=== PATIENT | female | born 2000 | race Caucasian/White ===

== ENCOUNTER 2024-08-28 18:01 | Emergency (ER) | payer MEDICAID, SELFPAY ==
[2024-08-28 18:04] VITALS: BP 108/63; PULSE 93; RESP 18; TEMP 36.7; O2SAT 99
[2024-08-28 18:07] VITALS: PULSE 93; O2SAT 99
[2024-08-28 18:32] VITALS: BP 100/65; PULSE 92; RESP 18; TEMP 37.1; O2SAT 96; BMI 32.8
--- NOTE | 2024-08-28 18:38 | PD.EDRME ---
Rapid Medical Screening Exam RME Arrival date/time: 08/28/24 18:01 Chief Complaint: Weakness Time Seen by Provider: 08/28/24 18:33 Vital signs: Vital Signs Temperature 98.1 F 08/28/24 18:04 Pulse Rate 93 08/28/24 18:04 Respiratory Rate 18 08/28/24 18:04 Blood Pressure 108/63 08/28/24 18:04 Pulse Oximetry (%) 99 08/28/24 18:04 Oxygen Delivery Method Room Air 08/28/24 18:04 Vital signs reviewed by provider: Yes RME Narrative: 24-year-old female presents for evaluation of weakness x 1 hour. She reports that she had a verbal altercation with PD just prior to arrival and has felt increasingly stressed since that time. She endorses suicidal ideation without a plan. She denies access to firearms at home. Endorses access to knives at home. Denies homicidal ideation. She has not taken her Keppra today.
[2024-08-28] MEDS: levETIRAcetam 250 MG TABLET 500 MG PO (19:00)
--- NOTE | 2024-08-28 23:28 | PC.NURSE ---
PT CALLED FROM [facility] NO ANSWER
--- NOTE | 2024-08-28 23:54 | PC.NURSE ---
PT CALLED BACK FROM [facility]OB[facility] NO ANSWER
== END 2024-08-29 00:08 | disposition left against medical advice (07) ==
PROVIDERS: Emergency Provider Emergency Medicine; PCP Family Medicine
DX: R53.1 Weakness (principal); Z53.29 Procedure and treatment not carried out because of patient's decision for other reasons
CPT/HCPCS: 81001; 81025; 99281; A9270

== ENCOUNTER 2024-09-09 19:47 | Emergency (ER) | payer MEDICAID, SELFPAY ==
[2024-09-09 19:54] VITALS: BP 130/89; PULSE 97; RESP 18; TEMP 36.8; O2SAT 96; BMI 28.8
[2024-09-09 20:05] VITALS: PULSE 98; RESP 18; O2SAT 99
--- NOTE | 2024-09-09 20:14 | EDNOTE_ITS ---
ED Seizures RME/HPI General Chief Complaint: Seizure Stated Complaint: SEIZURE Time Seen by Provider: 09/09/24 20:13 Source: patient and EMS Arrival date/time: 09/09/24 19:47 Mode of arrival: EMS Limitations: no limitations RME / HPI RME / HPI Narrative: DR LARRY MAIN ED EVALUATION: 24-year-old female patient with history of seizure disorder brought in by ambulance for reported seizure lasting of unknown duration. Patient states she did not fall or injure herself. She states she has been compliant with her medications. Used to see neurologist who is no longer practicing. Her PCP is managing her medications now. Related Data Home Medications ?Medication ?Instructions ?Recorded ?Confirmed fluoxetine 20 mg capsule 20 mg PO QDAY 06/25/24 06/25/24 levetiracetam 500 mg tablet 500 mg PO BID 06/25/24 06/25/24 methocarbamol 500 mg tablet 500 mg PO Q4H 06/25/24 06/25/24 prazosin 1 mg capsule 1 mg PO HS 06/25/24 06/25/24 prednisone 20 mg tablet mg 06/25/24 prednisone 20 mg tablet mg 06/25/24 prednisone 20 mg tablet mg 06/25/24 prednisone 20 mg tablet mg 06/25/24 06/25/24 Allergies Allergy/AdvReac Type Severity Reaction Status Date / Time amoxicillin Allergy Difficulty Verified 09/15/24 10:44 Breathing latex Allergy Hives Verified 09/15/24 10:44 mayonnaise Allergy Rash Verified 09/15/24 10:44 Pertussis Vaccines Allergy Difficulty Verified 09/15/24 10:44 Breathing pineapple Allergy Rash Verified 09/15/24 10:44 tomato Allergy Verified 09/15/24 10:44 Review of Systems Review of Systems Systems Reviewed: All systems reviewed, normal except as documented Narrative Review of Systems: CONST: Negative for fever, body aches and chills. HENT: Negative for neck pain/stiffness, headache, congestion, sore throat, swelling. EYES: Negative for discharge/pain or vision changes. RESP: Negative for cough/hemoptysis and shortness of breath. CV: Negative chest pain, difficulty breathing, palpitations. ABD: Negative pain, nausea, vomiting. : Negative increase frequency, dysuria, blood in urine or stool. MUSC: Negative for muscle aches, edema. SKIN: Negative rash, lesions/sores. NEURO: Negative headache, dizziness, weakness. Past Medical History Past Medical History NEUROLOGIC: Positive Seizures and Cerebral Palsy CARDIAC: Negative Congestive Heart Failure RESPIRATORY: Negative Chronic Obstructive Pulmonary Disease (COPD) GENITOURINARY: Negative Renal Disease ENDOCRINE: Negative Diabetes Mellitus Type 1 or Diabetes Mellitus Type 2 PSYCHO/SOCIAL: Positive Schizophrenia, Bipolar Disorder and Depression Social History SMOKING STATUS: Never smoker SUBSTANCE USE: does not use ED Exam Narrative Physical exam: GENERAL APPEARANCE: alert and oriented x 4, well-developed, well-nourished, no acute distress HEENT: Normocephalic, atraumatic; pupils equal, round, reactive to light; EOMI; mucous membranes pink, moist; oropharynx clear NECK: Supple LUNGS: CTABL; no wheezes, no rales, no rhonchi HEART: Regular rate, regular rhythm; normal S1, S2; no murmurs ABDOMEN: non distended; normal BS; soft, no tenderness, no guarding, no rebound; no masses, no organomegaly, no hernia BACK: no CVA tenderness EXTREMITIES: atraumatic; no edema NEUROLOGIC: awake; alert and oriented x4; cranial nerves II-XII grossly intact; no focal sensory or motor deficits PSYCHIATRIC: appropriate mood and affect SKIN: warm, dry, normal color; no rashes General Limitations: Present no limitations Course Quality Measures none Orders Category Date Time Status levETIRAcetam [Keppra] Med 09/09/24 21:06 Discontinued 1,000 mg PO X1 ONE Vital Signs Vital signs: Vital Signs Temperature 98.3 F 09/09/24 19:54 Pulse Rate 97 09/09/24 19:54 Respiratory Rate 18 09/09/24 19:54 Blood Pressure 130/89 H 09/09/24 19:54 Pulse Oximetry (%) 96 09/09/24 19:54 Oxygen Delivery Method Nasal Cannula 09/09/24 19:54 Oxygen Flow Rate 1 09/09/24 19:54 Seizure MDM Narrative MDM Narrative:: Scribe Attestation: Celi Vásquez, astrid scribing for and in the presence of Dr. Larry. Provider Notation: Although this document has been carefully reviewed, there may still be some phonetic and other typographical errors. These errors are purely grammatical due to imperfections in the software program and should not be construed in any way to compromise the substance of the patient's medical care during this visit. Patient data External records reviewed:: [facility] previous records Clinical information provided by:: patient Social determinants that could affect healthcare access:: mental health Patient has the following chronic illnesses:: Seizure disorder, Cerebral Palsy; Schizophrenia, Bipolar Disorder, Depression How is presenting disease/condition affected by chronic disease/condition?: c aused by Evaluation data The following diagnostics were reviewed and interpreted by me:: other (specify) Lab and/or radiology exams considered but not ordered:: Considered lab work and CT brain Interpretation Summary: n/a Medications / Prescriptions Medications or Prescriptions considered but not ordered:: n/a Medication administrations:: Medication Administration History Discontinued Medications Levetiracetam (Levetiracetam 250 Mg Tablet) 1,000 mg PO X1 ONE Stop: 09/09/24 21:07 Last Admin: 09/09/24 21:22 Dose: 1,000 mg Documented By: DB as above Consultations Consultation(s) initiated? (list below): No Diagnosis Seizure Differential Diagnosis: intractable seizure disorder, focal seizure, generalized seizure, epileptic seizure and status epilepticus Most likely diagnosis given after review of the tests above:: Recurrent seizures Admission Indicated Admission indicated?: not indicated Admission Request Was there a request for admission?: No Disposition Plan Disposition Plan: Discharge Discharge Attestation Discharge Attestation: The patient and all family members were given an opportunity to ask questions and understood the discharge instructions. Discharge instructions specifically effects, indications for sooner follow up or return to the emergency department, and the expected course of current diagnosis. Patient condition: Stable Discharge Plan Plan Patient Disposition: HOME (Self Care) Prescriptions/Referrals Prescriptions/Med Rec: No Action prednisone 20 mg tablet Patient Comments: TAKE 1 TABLET BY MOUTH ONCE DAILY FOR 4 DAY prednisone 20 mg tablet Patient Comments: TAKE 1 TABLET BY MOUTH ONCE DAILY FOR 4 DAY prednisone 20 mg tablet Patient Comments: TAKE 1 TABLET BY MOUTH ONCE DAILY FOR 4 DAY prednisone 20 mg tablet Patient Comments: TAKE 1 TABLET BY MOUTH ONCE DAILY FOR 4 DAY methocarbamol 500 mg tablet 500 mg PO Q4H Patient Comments: TAKE 1 TABLET BY MOUTH EVERY 4 HOURS FOR 30 DAYS levetiracetam 500 mg tablet 500 mg PO BID Patient Comments: TAKE 1 TABLET BY MOUTH EVERY 12 HOURS FOR 90 DAYS prazosin 1 mg capsule 1 mg PO HS Patient Comments: TAKE 1 CAPSULE BY MOUTH AT BEDTIME NIGHT FOR 60 DAYS fluoxetine 20 mg capsule 20 mg PO QDAY Patient Comments: TAKE 1 CAPSULE BY MOUTH EVERY DAY Referrals: Erich Ramirez MD [Primary Care Provider] - In 1 week Problem List Clinical Impression: Recurrent seizures Patient/Caregiver Discharge Instructions Education Materials: ED Seizure, Recurrent (Adult) Print Language: Cameroonian Stand Alone Forms: Maral Award Info., Patient Portal Info Letter
[2024-09-09] MEDS: levETIRAcetam 250 MG TABLET 1000 MG PO (21:22)
[2024-09-09 22:40] VITALS: BP 108/61; PULSE 71; RESP 16; TEMP 36.7; O2SAT 99
== END 2024-09-09 22:38 | disposition home or self-care (01) ==
PROVIDERS: Emergency Provider Emergency Medicine; PCP Family Medicine
DX: R56.9 Unspecified convulsions (principal)
CPT/HCPCS: 99283; A9270

== ENCOUNTER 2024-09-15 10:13 | Emergency (ER) | payer MEDICAID, SELFPAY ==
[2024-09-15 10:38] VITALS: PULSE 96; RESP 18; O2SAT 98; BMI 28.8
--- NOTE | 2024-09-15 10:49 | PC.NURSE ---
MADI FROM HOME. PER EMS SHE SMOKED SOME MARIJUANA, BECAME DEPRESSED AND WAS HAVING THOUGHT OF WANTING TO , PT THEN CALLED EMS AND CAME IN ON A VOLUNTARY HOLD. SITTER IN PLACE.
[2024-09-15 10:55] VITALS: BP 101/66; PULSE 68; RESP 18; TEMP 37.2; O2SAT 99; BMI 28.8
--- NOTE | 2024-09-15 11:09 | PD.EDDEPRS ---
ED Psych RME/HPI General Chief Complaint: Depression Stated Complaint: MENTAL EVAL Time Seen by Provider: 09/15/24 10:36 Arrival date/time: 09/15/24 10:13 RME / HPI RME / HPI Narrative: 24-year-old female patient with significant history of depression mental health problem, came in for evaluation regarding depression. Patient told me that she ate and edible earlier today and after that she had a bad trip, resulting to oral severe feeling sadness. Patient denies any auditory or visual hallucination.. Patient denies any homicidal suicidal ideation. Denies any other complaints no medications taken prior to arrival. Related Data Home Medications ?Medication ?Instructions ?Recorded ?Confirmed fluoxetine 20 mg capsule 20 mg PO QDAY 06/25/24 06/25/24 levetiracetam 500 mg tablet 500 mg PO BID 06/25/24 06/25/24 methocarbamol 500 mg tablet 500 mg PO Q4H 06/25/24 06/25/24 prazosin 1 mg capsule 1 mg PO HS 06/25/24 06/25/24 prednisone 20 mg tablet mg 06/25/24 prednisone 20 mg tablet mg 06/25/24 prednisone 20 mg tablet mg 06/25/24 prednisone 20 mg tablet mg 06/25/24 06/25/24 Allergies Allergy/AdvReac Type Severity Reaction Status Date / Time amoxicillin Allergy Difficulty Verified 09/15/24 10:44 Breathing latex Allergy Hives Verified 09/15/24 10:44 mayonnaise Allergy Rash Verified 09/15/24 10:44 Pertussis Vaccines Allergy Difficulty Verified 09/15/24 10:44 Breathing pineapple Allergy Rash Verified 09/15/24 10:44 tomato Allergy Verified 09/15/24 10:44 Review of Systems Review of Systems Narrative Review of Systems: Review of system reviewed and within normal limits except mentioned in HPI ED Exam Narrative Physical exam: VITAL SIGNS: Reviewed. GENERAL APPEARANCE: Alert and interactive, follows commands, no acute distress, HEAD AND FACE: Non-traumatic. ENT: PERRL, pink conjunctivitis, eyelid no trauma, Mucous membrane moist. NECK: Supple, nontender, no nuchal rigidity. CHEST: No tenderness, no crepitus, no paradoxical movement, no retractions. LUNGS: Clear, well ventilated, symmetric, no rales, no wheezing, no ronchi, no stridor, good breath sounds bilaterally. HEART: Regular rate, regular rhythm, no murmur, no gallops. ABDOMEN: Soft, positive bowel sounds, nondistended, no guarding, nontender, no rebound, no masses, RECTAL: Deferred. GENITAL: Deferred. NEUROLOGICAL: Gross motor function intact sensory function intact, Appropriate for age. MUSCULOSKELETAL: low back nontender, full range of motion. EXTREMITIES: Nontender, full range of motion. SKIN: Color pink, dry, no rash, no lacerations, no abrasions, no contusions. LYMPHATICS: Deferred. Course Quality Measures none Vital Signs Vital signs: Vital Signs Temperature 98.9 F 09/15/24 10:55 Pulse Rate 68 09/15/24 10:55 Respiratory Rate 18 09/15/24 10:55 Blood Pressure 101/66 09/15/24 10:55 Pulse Oximetry (%) 99 09/15/24 10:55 Oxygen Delivery Method Room Air 09/15/24 10:55 Psych MDM Narrative MDM Narrative:: Multiple reevaluation patient told me that she feels back to baseline, denies any homicidal or suicidal ideation. Patient is medically cleared for crisis intervention Crisis personnel saw the patient and has recommended that patient can be discharge home safely. I interviewed the patient, pt is calm and cooperative, denies suicidal ideation and HI at this time. cooler room worker has assured me that she will be setting up/helping the patient with mental health clinic appointments and outpatient community resources. Patient data External records reviewed:: None Clinical information provided by:: none Social determinants that could affect healthcare access:: none Patient has the following chronic illnesses:: Depression, mental health problem How is presenting disease/condition affected by chronic disease/condition?: exacerbated by Evaluation data The following diagnostics were reviewed and interpreted by me:: other (specify) (None) Lab and/or radiology exams considered but not ordered:: None Interpretation Summary: None Medications / Prescriptions Medications or Prescriptions considered but not ordered:: None Medication administrations:: None Consultations Consultation(s) initiated? (list below): No Diagnosis Psych Differential Diagnosis: acute psychosis, chronic schizophrenia and depression Most likely diagnosis given after review of the tests above:: Depression Admission Indicated Admission indicated?: not indicated Admission Request Was there a request for admission?: No Disposition Plan Disposition Plan: Discharge Discharge Attestation Discharge Attestation: The patient was given an opportunity to ask questions and understood the discharge instructions. Discharge instructions specifically effects, indications for sooner follow up or return to the emergency department, and the expected course of current diagnosis. Patient condition: Stable Discharge Plan Plan Patient Disposition: HOME (Self Care) Disposition Comment: stable Prescriptions/Referrals Prescriptions/Med Rec: No Action prednisone 20 mg tablet Patient Comments: TAKE 1 TABLET BY MOUTH ONCE DAILY FOR 4 DAY prednisone 20 mg tablet Patient Comments: TAKE 1 TABLET BY MOUTH ONCE DAILY FOR 4 DAY prednisone 20 mg tablet Patient Comments: TAKE 1 TABLET BY MOUTH ONCE DAILY FOR 4 DAY prednisone 20 mg tablet Patient Comments: TAKE 1 TABLET BY MOUTH ONCE DAILY FOR 4 DAY methocarbamol 500 mg tablet 500 mg PO Q4H Patient Comments: TAKE 1 TABLET BY MOUTH EVERY 4 HOURS FOR 30 DAYS levetiracetam 500 mg tablet 500 mg PO BID Patient Comments: TAKE 1 TABLET BY MOUTH EVERY 12 HOURS FOR 90 DAYS prazosin 1 mg capsule 1 mg PO HS Patient Comments: TAKE 1 CAPSULE BY MOUTH AT BEDTIME NIGHT FOR 60 DAYS fluoxetine 20 mg capsule 20 mg PO QDAY Patient Comments: TAKE 1 CAPSULE BY MOUTH EVERY DAY Referrals: Erich Ramirez MD [Primary Care Provider] - In 1 week Problem List Clinical Impression: Depression Patient/Caregiver Discharge Instructions Education Materials: Depression: Tips to Help Yourself Additional Instructions: Thank you for the opportunity for serving you today. You are stable for discharged . You are advised to: Follow-up with your PCP in 1 to 2 days Return to ED for worsening of symptoms Increase oral fluids Take medication as prescribed by your mental health MD Please stop eating marijuana Gummies Print Language: Cape Verdean Stand Alone Forms: Maral Award Info., Patient Portal Info Letter ELI/FARIDEH Supervising Physician DESMOND Supervising Physician: MD Patricio
[2024-09-15 12:37] VITALS: BP 105/65; PULSE 80; RESP 16; TEMP 36.7; O2SAT 100
--- NOTE | 2024-09-15 13:07 | PC.CC ---
Patient is a 24 year-old female who identifies as male. This patient was BIBA for mental health evaluation. Alexandra met with patient [id number] to complete assessment. ASW introduced self, role, and reason for assessment. ASW disclosed limits of confidentiality as well. Patient appeared alert and oriented to self, place, and situation. Patient?s mood appeared euthymic. Patient stated, ?I am in a good mood.? Patient?s thought process was linear and organized. No signs of delusions, paranoid or V/h. The patient stated, ?I took an edible and it gave me a bad trip made me feel depressed.? Per patient, it was a bad choice to take the edible. The patient denied suicidal or homicidal ideations. The patient denied visual and auditory hallucinations. Patient reports she has had multiple suicide attempts in the past but not suicidal today. The patient?s last psychiatric hospitalization was last month. The patient reports he has a diagnosis of Borderline Personality Disorder, Depression, Schizophrenia, and Anxiety. The patient reported he sees a Psychologist, Nixon Briones with [facility] and has a follow-up appointment in October 2024. The patient recently became connected with a psychiatrist at [facility] and had his first appointment yesterday and has a follow-up after [place]. The patient is a client of [facility] his worker is Archana Sewell. Patient provided consent to make contact with [facility] worker. The patient reports his support system is his roommate Dayanara and grandmother, Pamella Gamboa . Patient reports he does not want to go to a [facility] hospital and wants to engage in safety plan. Collateral: Lyn HINSON made contact with Archana Sewell, [facility] Worker. Per Archana, patient is receiving Independent [facility] Services which provides support to patient with daily living needs such as staff takes patient to any medical appointments, picking up his medications, grocery shopping, food preparation, etc. The patient?s Webb Screening was Moderate Risk. Upon clinical consultation with [facility] Loren Dinero patient does not meet criteria for 5150-Hold. Patient engaged in safety planning patient called and made a sooner appointment with his Psychologist, Nixon Briones for October 05, 2024 3:00pm and already has a follow-up appointment with Arnulfo Negron. Patient will return home with his roommate Dayanara. Patient was provided with community resources: Warm Line and Crisis Line and was informed to return to the ED should depressive symptoms return.
[2024-09-15 13:45] VITALS: BP 110/65; PULSE 80; RESP 18; TEMP 36.6; O2SAT 100
--- NOTE | 2024-09-15 13:45 | PC.NURSE ---
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
== END 2024-09-15 14:02 | disposition home or self-care (01) ==
PROVIDERS: Emergency Provider Emergency Medicine; PCP Family Medicine
DX: Z00.8 Encounter for other general examination (principal); F32.A Depression, unspecified
CPT/HCPCS: 90839; 96127; 99284

== ENCOUNTER 2024-09-20 23:29 | Emergency (ER) | payer MEDICAID, SELFPAY ==
[2024-09-21 00:24] VITALS: BP 106/70; PULSE 86; RESP 19; TEMP 36.4; O2SAT 98
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
[2024-09-21] MEDS: FAMOTIDINE 20 MG TABLET 40 MG PO (00:55)
[2024-09-21] MEDS: MG HYD/AL HYD/SIME (Maalox Reg) SUSP 30 ML UDC PO (00:55)
[2024-09-21 01:34] LABS: Basophils % (Auto) 1 % (0-2.5); Eosinophils # (Auto) 0.2 Thou/mm3 (0.0-0.5); Eosinophils % (Auto) 3 % (0-10); Hemoglobin 12.9 g/dL (12.0-16.0); Immature Granulocytes % (Auto) 0 % (0-0); Immature Granulocytes Auto 0.01 Thou/mm3 (0.00-0.00); Lymphocytes # (Auto) 2.2 Thou/mm3 (1.0-4.8); Lymphocytes % (Auto) 30 % (10-50); Mean Corpuscular HGB Conc 34.9 g/dl (31.0-37.0); Mean Corpuscular Hemoglobin 30.5 pg (25.0-35.0); Mean Corpuscular Volume 88 fL (80-100); Monocytes # (Auto) 0.3 Thou/mm3 (0.0-0.8); Monocytes % (Auto) 5 % (0-12); Neutrophils # (Auto) 4.3 Thou/mm3 (1.8-7.7); Neutrophils % (Auto) 61 % (37-80); Nucleated Red Blood Cell % 0 /100 WBC (0); Platelet Count 251 Thou/mm3 (140-440); Red Blood Count 4.23 Miln/mm3 (4.00-5.20); White Blood Count 7.1 Thou/mm3 (3.6-11.0)
[2024-09-21 01:55] LABS: Alanine Aminotransferase 23 U/L (10-49); Albumin, Serum 4.7 gm/dL (3.5-5.0); Albumin/Globulin Ratio 1.9 (1.2-2.2); Alkaline Phosphatase 55 U/L (46-116); Anion Gap 5 (7-16); Aspartate Amino Transferase < 8 U/L (0-34); BUN/Creatinine Ratio 22 Ratio (12-20); Beta HCG,Quantitative < 1 mIU/mL (<5.0); Bilirubin,Total 0.5 mg/dL (0.3-1.2); Blood Urea Nitrogen 13 mg/dL (9-23); Calcium 9.5 mg/dL (8.3-10.6); Calcium (Corrected) 9.5 mg/dL (8.5-10.1); Carbon Dioxide 28.7 mMol/L (20.0-31.0); Chloride 103 mMol/L (98-107); Creatinine (Component) 0.6 mg/dL (0.6-1.3); Globulin 2.5 gm/dL (2.3-3.5); Glucose 101 mg/dL (74-106); Lipase 48 U/L (12-53); Osmolality,Calculated 273 (275-295); Potassium 3.4 mMol/L (3.4-5.1); Sodium 137 mMol/L (136-145); Total Protein 7.2 gm/dL (5.7-8.2); eGFR > 60 See Note
[2024-09-21 02:36] VITALS: BP 109/74; PULSE 82; RESP 19; TEMP 36.4; O2SAT 98
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
--- NOTE | 2024-09-21 02:57 | XR_ITS ---
Examination: Pelvic ultrasound, transabdominal, complete Technique: Transabdominal ultrasound of the pelvis performed using grayscale imaging Date and time of exam: August 22, 2024 0417 hrs. Indications: Pelvic cramping beginning 3 days ago Findings: Uterus 8.1 x 3.0 x 4.1 cm No uterine mass or intrauterine gestation Endometrial stripe 0.77 cm Right ovary 2.0 x 2.0 x 2.0 cm arterial flow Left ovary obscured by bowel gas Impression: Limited study No uterine mass or intrauterine gestation
--- NOTE | 2024-09-21 05:19 | PRELIM_ITS ---
Pelvic ultrasound (transabdominal). September 21, 2024 at 0417 hours Clinical history: Pelvic pain Yunior hnique: Real-time, grayscale, transabdominal pelvic ultrasound was performed using Duplex scanning in cluding arterial inflow, venous outflow, color and spectral Doppler.Comparison: No prior study is terrence ilable for comparison. Findings:The uterus measuring 8.1 x 3 x 4.1 cm. The endometrium is unremarkabl e and measures 0.8 cm. The right ovary measures 2 x 2 x 2 cm and demonstrates multiple follicles.The right ovary demonstrates color flow and spectral waveforms on Doppler evaluation. The left ovary is o bscured by bowel gas and is not evaluated on this examination. There is no adnexal mass. There is no free fluid on the submitted images. Impression:No sonographic evidence of right ovarian torsion is d emonstrated on the submitted images. Nonvisualized left ovary. Report Electronically Signed By: Moni Vivar 09/21/2024 5:18:46 AM [EST]
[2024-09-21 06:00] VITALS: BP 108/72; PULSE 80; RESP 19; TEMP 36.3; O2SAT 98
--- NOTE | 2024-09-21 06:05 | EDNOTE_ITS ---
Emergency Room Addendum Addendum Narrative: I took over the care from Dr. Wynn at 6 AM on 09/21/2024, see her notes for complete H&P and ED course. I reviewed blood tests, unremarkable. I reviewed pelvic ultrasound report, no acute findings. Make clinical diagnosis of pelvic pain due to ovarian cyst. Recommended supportive care and outpatient [employer] care. Discharge instructions from Dr. Palmer: -- After extensive evaluation, there is no emergency such as ovarian torsion (twisting of the ovary) needing urgent surgery. -- Your pain is most likely from an ovarian cyst that ruptured. -- In young females, it is normal to have ovarian cysts (sacs of fluid) that come and go depending on the menstruation.? If a cyst ruptures, it can cause severe pain until your body reabsorbs the fluid. -- Apply ice or heat if helpful.? And Tylenol/ibuprofen as needed. -- See a private doctor on 09/22/2024.? Ask for a referral to see a school cleaner to make sure there is no other serious underlying conditions. -- Seek immediate medical care with worsening, fever, or with any concerns.
== END 2024-09-21 06:50 | disposition home or self-care (01) ==
PROVIDERS: Physician Assistant; Emergency Provider Emergency Medicine; PCP Family Medicine
DX: R10.2 Pelvic and perineal pain (principal)
CPT/HCPCS: 36415; 76856; 80053; 80307; 81001; 81025; 83690; 84702; 85025; 99284; A9270

== ENCOUNTER 2025-01-24 21:53 | Emergency (ER) | payer MEDICAID, SELFPAY ==
[2025-01-24 21:55] VITALS: BP 107/70; PULSE 92; RESP 20; TEMP 36.8; O2SAT 99
[2025-01-24 21:57] VITALS: BMI 29.8
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
[2025-01-24 22:47] LABS: Collection Type, Urine Clean Catch; RBC,Urine 0 /hpf (0-3)
[2025-01-24 22:48] LABS: Basophils # (Auto) 0.1 Thou/mm3 (0.0-0.2); Basophils % (Auto) 1 % (0-2.5); Eosinophils # (Auto) 0.1 Thou/mm3 (0.0-0.5); Eosinophils % (Auto) 2 % (0-10); Hematocrit 38.7 % (36.0-46.0); Hemoglobin 13.5 g/dL (12.0-16.0); Immature Granulocytes % (Auto) 0 % (0-0); Immature Granulocytes Auto 0.02 Thou/mm3 (0.00-0.00); Lymphocytes # (Auto) 2.1 Thou/mm3 (1.0-4.8); Lymphocytes % (Auto) 26 % (10-50); Mean Corpuscular HGB Conc 34.9 g/dl (31.0-37.0); Mean Corpuscular Hemoglobin 30.4 pg (25.0-35.0); Mean Corpuscular Volume 87 fL (80-100); Monocytes # (Auto) 0.4 Thou/mm3 (0.0-0.8); Monocytes % (Auto) 5 % (0-12); Neutrophils # (Auto) 5.3 Thou/mm3 (1.8-7.7); Neutrophils % (Auto) 67 % (37-80); Nucleated Red Blood Cell % 0 /100 WBC (0); Platelet Count 244 Thou/mm3 (140-440); RDW Standard Deviation 37.4 fL (36.4-46.3); Red Blood Count 4.44 Miln/mm3 (4.00-5.20)
[2025-01-24 23:05] LABS: Bacteria,Urine Rare; Bilirubin,Urine Negative (Negative); Blood,Urine Negative (Negative); Clarity,Urine Clear (Clear/Hazy); Color,Urine Yellow (Lt Yel-Yel); Culture Indicated,Urine Not Indicated; Glucose, Urine Negative (Negative); Hyaline Casts,Urine < 1 /hpf (0-1); Ketones,Urine 2+ (Negative); Leukocyte Esterase,Urine Positive (Negative); Nitrite,Urine Negative (Negative); Protein,Urine Trace (Neg - Trace); Specific Gravity,Urine 1.035 (1.001-1.035); Squamous Epithelial Cell,Urine 11 /hpf (0-5); WBC,Urine 6 /hpf (0-5)
[2025-01-24 23:18] LABS: Anion Gap 9 (7-16); BUN/Creatinine Ratio 11 Ratio (12-20); Blood Urea Nitrogen 8 mg/dL (9-23); Carbon Dioxide 27.7 mMol/L (20.0-31.0); Chloride 106 mMol/L (98-107); Creatinine (Component) 0.7 mg/dL (0.6-1.3); Potassium 3.4 mMol/L (3.4-5.1); Sodium 143 mMol/L (136-145)
[2025-01-24 23:19] LABS: Acetaminophen < 2.0 mcg/mL (10.0-20.0); Alanine Aminotransferase 13 U/L (10-49); Albumin, Serum 4.4 gm/dL (3.5-5.0); Albumin/Globulin Ratio 1.7 (1.2-2.2); Alcohol, Blood Medical < 3.0 mg/dL (0-10.0); Alkaline Phosphatase 45 U/L (46-116); Aspartate Amino Transferase 15 U/L (0-34); Bilirubin,Total 0.8 mg/dL (0.3-1.2); Calcium 9.4 mg/dL (8.3-10.6); Calcium (Corrected) 9.4 mg/dL (8.5-10.1); Estimated Creatinine Clearance 116.7 mL/min (>60); Free T4 (Free Thyroxine) 1.13 ng/dL (0.89-1.76); Globulin 2.6 gm/dL (2.3-3.5); Glucose 100 mg/dL (74-106); Magnesium 1.6 mg/dL (1.6-2.6); Osmolality,Calculated 283 (275-295); Salicylate < 3.0 mg/dL; Thyroid Stimulating Hormone 1.28 uIU/mL (0.55-4.78); eGFR > 60 See Note
[2025-01-24 23:29] LABS: HCG,Qualitative Serum Negative
[2025-01-24 23:30] LABS: HCG Qualitative,Urine Negative
[2025-01-24 23:43] LABS: Amphetamine/Methamp Scrn,U Negative (Negative); Barbiturate Screen,Urine Negative (Negative); Benzodiazepines Screen,Urine Negative (Negative); Benzoylecgonine Screen, Ur Negative (Negative); Fentanyl Screen,Urine Negative (Negative); Opiate Screen,Urine Negative (Negative); THC Screen,Urine Negative (Negative)
[2025-01-24 23:45] VITALS: BP 116/80; PULSE 77; RESP 20; TEMP 36.9; O2SAT 96
--- NOTE | 2025-01-24 23:56 | PC.NURSE ---
Pt resting comfortably in [facility], being cooperative no behavioral activity.
[2025-01-25 06:00] VITALS: BP 98/67; PULSE 88; RESP 20; TEMP 36.8; O2SAT 95
--- NOTE | 2025-01-25 06:05 | PD.EDADDENDU ---
Emergency Room Addendum Addendum Narrative: 0600: Care assumed from Dr. Palmer, the previous shift emergency physician. Past medical, surgical, social and family history reviewed. Vitals and home medications reviewed. I will assume the care of the patient at this time, pending mental health evaluation. Please refer to the emergency department record for history and examination from initial visit.?The following addendum documentation note is intended to reflect any pending information, findings, or radiology results not included in the patient?s initial chart. 0910: Patient has been evaluated by our ASW and cleared patient to go home with safety plan. Patient remains clinically stable throughout the emergency department visit. Patient is amenable to discharge. Strict return precautions were outlined. Patient was discharged in stable condition.
[2025-01-25 08:07] VITALS: BP 119/81; PULSE 96; RESP 19; TEMP 36.7; O2SAT 99
--- NOTE | 2025-01-25 10:20 | PC.CC ---
Patient is a 24 year-old transgender female to male who presents to the hospital for suicidal ideations with plan to overdose on medications. ASWLyn made [id number] contact with patient. ASW introduced self, role, and reason for visit.?Patient appeared alert and oriented to self, location, and situation.?ASW disclosed limits of confidentiality as well. Patient appeared alert and oriented to self, place, and situation. Patient?s mood appeared to be euthymic; she was cooperative; made appropriate eye contact; patient had good insight and judgement. Patient?s thought process was linear and organized. No signs of delusions, paranoid or V/h. Patient reports yesterday she left her grandmother?s home and went to stay at [facility] here in [place] because she no longer wanted to stay with her grandparents. Patient expressed that once at the [facility] she began to have dark thoughts of suicidal ideations. Patient reports to this ASW that she did not have a plan. ASW discussed with patient the plan she had disclosed to the provider at time of arrival to the hospital. Patient reports she does not have access to her medication. At the time of encounter with patient denied suicidal and homicidal ideations, visual and auditory hallucinations. Patient reports the last time she was placed on a 5150-hold was in July of 2024 when she intentionally overdosed. Patient reports since this time she has not had any suicide attempt or been placed on a 5150-hold. Patient has a mental health diagnosis of Depression and Bipolar Disorder. Patient reports she is currently connected to [facility] in [place] and is followed by Psychiatrist, Dr. Negron and followed by Daniel. Patient has an appointment today with Missy at [facility]. Patient reports she is compliant with her psychotropic medications Prozac 10mg and Ambilify 10mg. Patient was High-Risk on the [employer] Screening. ASW discussed safety planning with patient. Patient is receptive to safety planning with her grandparents Missy Gamboa . Patient provided consent to make contact with grandparents for collateral information and for safety planning. Lyn HINSON made telephone contact with Candy Gamboa to discuss safety planning with patient and this card writer hand. Grandparents are willing to safety plan and take the patient back into their home. Per grandmother, the patient left her home yesterday with a friend named Chiquita and came to [place]. Patient?s grandmother reports the patient leaving [place] and coming to [place] was a bad idea but was not able to elaborate as to why it was a bad idea. Grandmother reports that patient does not have access to all her medication as she keeps them locked, all sharps are also locked up, and there are no firearms in the home. Grandfather Ken reports he is willing to sheepskin pickler the patient and ensure she attends her appointment today. Upon clinical consultation with [facility], Sonia Mckee patient does not meet criteria for 5150-hold and a safety plan will be established by this card writer hand with patient and grandparents. ASW made [id number] contact with patient to establish safety plan. Safety plan is that grandfather will sheepskin pickler the patient and take her back home. Grandparents are to provide extra supervision for the next 72 hours if patient is non-compliant they are to call the Police as this patient is a high risk. Patient is to continue all medications as prescribed and attend her appointment at [facility]. If patient fails to attend her appointment at noon today police are to be notified. All medications and sharps are to continue to be locked in a secure place. There are no firearms in the home. Patient and grandparents agreed to safety plan and it importance of being followed. Patient was provided with [facility] number and was instructed to return if suicidal ideations return. ASW provided update of discharge plan with safety plan to Dr. Bell, mechanical technician Lanise, and bedside GRACIELA Bal.
== END 2025-01-25 09:45 | disposition home or self-care (01) ==
PROVIDERS: Emergency Medicine; Emergency Provider Emergency Medicine
DX: R45.851 Suicidal ideations (principal); F31.9 Bipolar disorder, unspecified
CPT/HCPCS: 36415; 80053; 80307; 80320; 80329; 81001; 81025; 83735; 84439; 84443; 84703; 85025; 90839; 96127; 99284; G0480